=== PATIENT | male | born 1975 | race Caucasian/White ===

== ENCOUNTER → 2018-09-04 | Outpatient (CLI) | payer BC, OTHER ==
[~2018-09-04] MED LIST: Advair Hfa 230-12 GM; Exforge 5-1601 EACH; PANT40; PRED20
[2018-09-04 09:48] LABS: Body Fluid Crystals NEG (NEGATIVE)
[2018-09-04 09:53] LABS: BASOPHILS ABSOLUTE AUTO 0.07 K/mm3 (0.00-0.23); BASOPHILS PERCENT AUTO 1 % (0-2); EOSINOPHILS PERCENT AUTO 3 % (0-6); Hematocrit 47.2 % (37.0-53.0); Hemoglobin 16.1 g/dL (13.5-17.5); IMMATURE GRAN ABSOLUTE AUTO 0.06 K/mm3 (0.00-0.10); IMMATURE GRAN PERCENT AUTO 1 % (0-1); LYMPHOCYTES ABSOLUTE AUTO 1.07 K/mm3 (0.84-5.20); LYMPHOCYTES PERCENT AUTO 15 % (21-46); MONOCYTES ABSOLUTE AUTO 0.86 K/mm3 (0.16-1.47); MONOCYTES PERCENT AUTO 12 % (4-13); Mean Corpuscular HGB 32.6 pg (26.0-34.0); Mean Corpuscular HGB Conc 34.1 g/dL (31.5-36.5); Mean Corpuscular Volume 96 fL (80-100); Mean Platelet Volume 9.5 fL (9.1-12.4); NEUTROPHILS ABSOLUTE AUTO 4.74 K/mm3 (1.96-9.15); NEUTROPHILS PERCENT AUTO 68 % (41-73); Platelet Count 210 K/mm3 (150-400); RDW Coefficient Variation 12.6 % (11.7-14.2); RDW Standard Deviation 44.2 fL (35.1-46.3); Red Blood Cell Count 4.94 M/mm3 (4.30-5.90)
[2018-09-04 10:17] LABS: Alanine Aminotransfer (ALT/SGP 37 U/L (12-78); Albumin, Blood 4.1 g/dL (3.4-5.0); Albumin/Globulin Ratio 1.2 (0.8-1.8); Alk Phos 44 U/L (50-136); Anion Gap 7 mmol/L (6-16); Aspartate Aminotrans (AST/SGOT 19 U/L (12-37); Bilirubin, Total 0.6 mg/dL (0.1-1.0); Blood Urea Nitrogen 17 mg/dL (8-24); Bun/Creatinine Ratio 21.6 (12.0-20.0); CO2, Blood 29 mmol/L (21-32); Calcium, Blood 8.8 mg/dL (8.5-10.1); Chloride, Blood 103 mmol/L (98-108); Creatinine, Blood 0.79 mg/dL (0.60-1.20); Globulin, Blood 3.5 g/dL (2.2-4.0); Glomerular Filtration Rate >60 (60-); Glucose, Blood 100 mg/dL (70-99); Sodium, Blood 139 mmol/L (136-145); Total Protein, Blood 7.6 g/dL (6.4-8.2); Uric Acid, Blood 6.4 mg/dL (3.5-7.2)
== END | disposition home or self-care (01) ==
LOC: LAB SHORT 09:39 → LAB 09:39
PROVIDERS: Nurse Practitioner
DX: M13.879 Other specified arthritis, unspecified ankle and foot (principal)
CPT/HCPCS: 80053; 84550; 85025; 87070; 87205; 89060

== ENCOUNTER 2022-10-10 09:02 | Day surgery (SDC) | payer OTHER ==
[~2022-10-10] VITALS: Ht 188 cm; Wt 115.6 kg
[2022-10-10] MEDS ORDERED: OMEP20ER PO (09:23)
[2022-10-10 11:25] VITALS: BP 116/97
== END 2022-10-10 11:34 | disposition home or self-care (01) ==
LOC: ORSCSDS 09:02
PROVIDERS: Surgery
PROC: 0DBL8ZX Excision of Transverse Colon, Via Natural or Artificial Opening Endoscopic, Diagnostic (ICD-10-PCS; principal; 2022-10-10 10:15)
PROC: 0DB78ZX Excision of Stomach, Pylorus, Via Natural or Artificial Opening Endoscopic, Diagnostic (ICD-10-PCS; principal; 2022-10-10 10:15)
PROC: 0DBK8ZX Excision of Ascending Colon, Via Natural or Artificial Opening Endoscopic, Diagnostic (ICD-10-PCS; principal; 2022-10-10 10:15)
PROC: 0DBP8ZX Excision of Rectum, Via Natural or Artificial Opening Endoscopic, Diagnostic (ICD-10-PCS; principal; 2022-10-10 10:15)
PROC: 0DBN8ZX Excision of Sigmoid Colon, Via Natural or Artificial Opening Endoscopic, Diagnostic (ICD-10-PCS; principal; 2022-10-10 10:15)
PROC: 0DBH8ZX Excision of Cecum, Via Natural or Artificial Opening Endoscopic, Diagnostic (ICD-10-PCS; principal; 2022-10-10 10:15)
DX: Z12.11 Encounter for screening for malignant neoplasm of colon (principal); Z80.0 Family history of malignant neoplasm of digestive organs; K21.9 Gastro-esophageal reflux disease without esophagitis; K22.70 Barrett's esophagus without dysplasia; K31.7 Polyp of stomach and duodenum; K29.70 Gastritis, unspecified, without bleeding; D12.0 Benign neoplasm of cecum; D12.2 Benign neoplasm of ascending colon; D12.8 Benign neoplasm of rectum; K63.5 Polyp of colon; K62.1 Rectal polyp; D37.4 Neoplasm of uncertain behavior of colon; K57.30 Diverticulosis of large intestine without perforation or abscess without bleeding; J45.909 Unspecified asthma, uncomplicated; Z79.899 Other long term (current) drug therapy; Z87.891 Personal history of nicotine dependence
CPT/HCPCS: 88305; 88342; J2001; J2250; J2704; J7120

== ENCOUNTER 2022-10-30 06:18 | Day surgery (SDC) | payer OTHER ==
[~2022-10-30] VITALS: Ht 188 cm; Wt 117.8 kg
[~2022-10-30 06:18] MED LIST changes: +OMEP20ER PO
--- NOTE | 2022-10-30 08:07 | NUR ---
10/30/22 0807 Leigh Hernandez 30ML OF EPI (1MG/ML) USED TO SOAK PLEDGETS FOR NASAL PACKING. LIDOCAINE 2% WITH EPI 1:100,000 VERIFIED AND DILUTED 1:1 WITH NORMAL SALINE TO MAKE LIDOCAINE 1% WITH EPI 1:200,000 FOR INJECTION AT OPSITE BY DR FARFAN.
--- NOTE | 2022-10-30 11:33 | NUR ---
10/30/22 1133 Senait Hinton PT IN BED TOLERATING PO FLUIDS, PT REPORTS BEING VERY WARM AND SWEATY REPORTS PAIN 7/10, REDUCED TO 6/10 AFTER 25MCG FENTANYL. RN ADMINISTERED 25MCG OF FENTANYL AT 1130, WILL REASSESS PAIN. IN TOTAL PT HAS RECEIVED 50MCG OF FENTANYL SINCE OUT OF SURGERY. PT AT BEDSIDE, PT TRANSFERRED TO CHAIR
[2022-10-30 12:01] VITALS: BP 126/98
== END 2022-10-30 12:11 | disposition home or self-care (01) ==
LOC: ORSCSDS 06:18
DX: J32.8 Other chronic sinusitis (principal); J33.9 Nasal polyp, unspecified; K21.9 Gastro-esophageal reflux disease without esophagitis; J45.909 Unspecified asthma, uncomplicated; Z79.899 Other long term (current) drug therapy
CPT/HCPCS: 88305; 88311; 88312; A9270; C2625; J0171; J1100; J2250; J2371; J2405; J2704; J3010; J7120